=== PATIENT | female | born 1975 | race Caucasian/White ===

== ENCOUNTER → 2023-12-09 | Outpatient (CLI) | payer BC ==
--- NOTE | 2023-12-11 23:17 | MR ---
EXAMINATION TYPE: MR shoulder RT wo con DATE OF EXAM: 12/09/2023 COMPARISON: Outside right shoulder x-ray December 02, 2023 HISTORY: Right shoulder pain, injury 1 month ago. Fracture per patient. TECHNIQUE: Multiplanar, multisequence imaging of the right shoulder is performed without contrast. FINDINGS: Rotator Cuff: Some increased signal distal supraspinatus tendon. Infraspinatus tendon is intact. Subs capularis tendon intact. Rotator cuff muscle bulk is preserved. Acromioclavicular Joint: Mild narrowing. No significant spurring or capsular hypertrophy. Glenohumeral Joint: Small joint effusion. No significant spurring. Labrum: The labrum appears grossly intact given limitation of non-arthrogram study. Biceps Tendon: The long head of biceps is in normal location within bicipital groove. Bone marrow signal: Corresponding to x-ray there is linear diminished T1 signal through the superior lateral aspect of the humeral head with significant surrounding increased T2 signal. This involves th e greater tuberosity. Other: No additional significant abnormality is appreciated. IMPRESSION: 1. There is acute nondisplaced comminuted fracture through the superior lateral aspect of the humeral head including the greater tuberosity correlating with x-ray. There is significant surrounding osseo us contusion injury extending inferiorly. 2. There is some tendinosis of the distal supraspinatus tendon. No rotator cuff or labral tear. [facility], , 12/11/2023 11:15 PM
== END | disposition home or self-care (01) ==
LOC: RADMRIMAIN 13:10
PROVIDERS: ATTEND Orthopaedic Surgery
DX: M25.511 Pain in right shoulder